=== PATIENT | male | born 2000 | race African-American/Black ===

== ENCOUNTER 2020-06-21 01:43 | Emergency (ER) | payer SELFPAY ==
[~2020-06-21] VITALS: Ht 177.8 cm; Wt 67.9 kg
[2020-06-21 01:45] VITALS: BP 120/78
[2020-06-21] MEDS ORDERED: ACETAMINOPHEN 500 MG TAB (TYLENOL) PO ONE (02:15)
--- NOTE | 2020-06-21 02:25 | ED Fever ---
History of Present Illness General Stated Complaint: FEVER,GROGGY Source: patient Exam Limitations: no limitations History of Present Illness Date Seen by Provider: Jun 21, 2020 Time Seen by Provider: 02:08 Initial Comments The patient is a 19-year-old male presents for evaluation of fever and body aches over the last 24 hours. 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 He believes that a classmate and one of his classes recently tested positive for COVID-19 is unsure. He denies any sick contacts on his track team that he is aware of. He denies headache, neck pain or stiffness, sore throat, chest pain or shortness of breath, cough, loss of taste or smell, diarrhea, nausea or vomiting, abdominal or back pain, or urinary complaints. He is alert and oriented 4, calm, and appears to be in no distress. He is able to keep fluids down without any difficulty. He mentions that he has a history of HIV but after medications his levels are now undetectable. Timing/Duration: yesterday Fever Quality: low grade Associated Symptoms: weakness (fatigue) Allergies and Home Medications Allergies Coded Allergies: No Known Drug Allergies (Unverified , 06/21/20) Patient Home Medication List Home Medication List Reviewed: Yes Review of Systems Review of Systems Constitutional: fever, malaise EENTM: no symptoms reported Respiratory: no symptoms reported Cardiovascular: no symptoms reported Gastrointestinal: no symptoms reported Genitourinary: no symptoms reported Musculoskeletal: no symptoms reported Skin: no symptoms reported Psychiatric/Neurological: No Symptoms Reported Hematologic/Lymphatic: No Symptoms Reported Immunological/Allergic: no symptoms reported All Other Systems Reviewed Negative Unless Noted: Yes Past Ffgjxti-Etvdxh-Ferdtm Hx Past Med/Social Hx: Reviewed Nursing Past Med/Soc Hx Patient Social History Recent Foreign Travel: No Contact w/Someone Who Travel: No Physical Exam Vital Signs - First Documented 06/21/20 02:17 Temp 38.1 Capillary Refill : Height: '" Weight: lbs. oz. 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, no motor/sensory deficits, alert, normal mood/affect, oriented x 3 Skin: normal color, warm/dry Progress/Results/Core Measures Suspected Sepsis SIRS Temperature: Pulse: Respiratory Rate: Blood Pressure / Mean: Results/Orders Lab Results Laboratory Tests Test 06/21/20 02:15 Range/Units My Orders Orders - JONNATHAN GAUTHIER DO Acetaminophen Tablet (Tylenol Tablet) (06/21/20 02:15) Coronavirus Sars-Cov-2 So 2018 (06/21/20 02:09) Medications Given in ED Current Medications Medications Dose Ordered Sig/Garth Route Start Time Stop Time Status Last Admin Dose Admin Acetaminophen 1,000 mg ONCE ONCE PO 06/21/20 02:15 06/21/20 02:16 DC 06/21/20 02:17 1,000 MG Vital Signs/I&O 06/21/20 02:17 Temp 38.1 Capillary Refill : Progress Note : Progress Note @0220 - the patient has been swabbed for COVID. Advised the patient that his results may take up to 1-2 days to come back. Explained the patient that he needs to self quarantine and does not attend school or track and field until he notices results. Encourage plenty of fluids and take Tylenol or ibuprofen for fever or pain relief as needed. The patient appears comfortable and is in no distress and is agreeable to this plan. Advised the patient to follow up with his PCP in the next 2-3 days and to return to the emergency Department immediately for new or worsening symptoms. Departure Impression Primary Impression: Fever Additional Impressions: Fatigue Flu-like symptoms Disposition: HOME, SELF-CARE Condition: Stable Departure-Patient Inst. Decision time for Depature: 02:22 Referrals: NO,LOCAL PHYSICIAN (PCP) [place] [facility] [place]ructions: Fever of Unknown Origin, Viral Syndrome (DC) Add. Discharge Instructions: As we discussed your tested for COVID today and he is results may take 1-2 days to come back. It is very important that you self quarantine, stay away from oth ers, and not attend school or track and field. Take Tylenol or ibuprofen for fevers as needed. Drink plenty of fluids to stay well hydrated. Follow-up with your doctor in the next 2-3 days and return to the emergency Department immediately for new or worsening symptoms. Work/School Note: Work Release Form Date Seen in the Emergency Department: Jun 21, 2020 Return to Work: Jun 24, 2020 Restrictions: Return-No Fever (24hrs) Other Restrictions Listed Below: Must have negative COVID result before returning to school/track JONNATHAN GAUTHIER DO Jun 21, 2020 02:25
--- NOTE | 2020-06-21 17:56 | NUR ---
Notified patient and health dept of positive COVID test. Quarantine explained and questions answered. He goes to school at [employer] and is in Quarantine housing.
== END 2020-06-21 02:35 | disposition home or self-care (01) ==
LOC: ER FS 01:53
DX: U07.1 COVID-19 (principal); Z21 Asymptomatic human immunodeficiency virus [HIV] infection status
CPT/HCPCS: 87635; 99283